=== PATIENT | male | born 1960 | race Caucasian/White ===

== ENCOUNTER → 2017-02-20 13:08 | Emergency (ER) | payer OTHER, MEDICARE ==
[2017-02-20 13:18] VITALS: BP 146/79
[2017-02-20 15:14] LABS: Hematocrit 43 % (42-52); Hemoglobin 14.7 g/dl (14.0-18.0); Mean Corpuscular HGB Conc 34 g/dl (31-36); Mean Corpuscular Hemoglobin 31 pg (27-31); Mean Corpuscular Volume 91 fL (80-94); Mean Platelet Volume 10 um3 (7.4-10.4); Red Cell Distribution Width 13 % (10.5-15)
[2017-02-20 15:34] LABS: ALT 16 U/L (7-52); AST 21 U/L (13-39); Albumin 4.1 g/dL (3.2-5.2); Alkaline Phosphatase 46 U/L (34-104); Anion Gap 7 mmol/L (2-11); BUN/Creatinine Ratio 14.7 (8-20); Blood Urea Nitrogen 15 mg/dL (6-24); CO2 Carbon Dioxide 24 mmol/L (22-32); Calcium 8.6 mg/dL (8.6-10.3); Chloride 107 mmol/L (101-111); EGFR African American 96.8 (>60); EGFR Non-African American 75.3 (>60); Globulin 2.3 g/dL (2-4); Glucose 100 mg/dL (70-100); Sodium 138 mmol/L (133-145); Total Protein 6.4 g/dL (6.4-8.9)
[2017-02-20 15:44] LABS: Acetaminophen < 15 mcg/mL; Alcohol < 10 mg/dL (<10); Salicylate < 2.50 mg/dL (<30)
[2017-02-20 15:53] LABS: TSH (Thyroid Stimulating Horm) 1.63 mcIU/mL (0.34-5.60)
[2017-02-20 16:57] LABS: Urine Bilirubin Negative (Negative); Urine Glucose Negative (Negative); Urine Nitrite Negative (Negative)
[2017-02-20 17:11] LABS: Benzodiazepine Urine Screen None Detected (None Detect)
--- NOTE | 2017-02-20 19:07 | ED ---
Juan Manuel Kruger Benjamin, scribed for Leonel Alonzo MD on 02/20/17 at 1412 . Psychiatric Complaint - HPI Summary HPI Summary: 57yo male who has hx of depression, confusion, and social withdrawal since 2005. Pt has been seeing a psychiatrist. Per , pt has been having difficulty carrying out the acts, doing normal daily chores. Pt denies any other new problems or acute changes. Denies SI or HI. Hx of bariatric surgery, hernia repair, and thyroid dz. Unknown FHx since pt was adopted. Pt is allergic to ibuprofen. Pt wants a psych consult. - History Of Current Complaint Chief Complaint: EDAltMentalStatus Time Seen by Provider: 02/20/17 13:55 Hx Obtained From: Patient, Family/Manager Hospital - Onset/Duration: Lasting Weeks, Still Present Timing: Constant Severity Initially: Mild Severity Currently: Mild Character: Depressed Aggravating Factor(s): Nothing Alleviating Factor(s): Nothing Associated Signs And Symptoms: Positive: Negative Has Suicidal: Denies: Thoughts, With A Plan Has Homicidal: Denies: Thoughts, With A Plan - Allergies/Home Medications Allergies/Adverse Reactions: Allergies Allergy/AdvReac Type Severity Reaction Status Date / Time No Known Allergies Allergy Verified 02/20/17 13:11 PMH/Surg Hx/FS Hx/Imm Hx Endocrine/Hematology History: Reports: Hx Thyroid Disease GI History: Reports: Hx Hiatal Hernia Psychiatric History: Reports: Hx Depression - Cancer History Cancer Type, Location and Year: bariatric surgery, hernia repair Infectious Disease History: Denies: Traveled Outside the [place] in Last 30 Days - Family History Known Family History: Positive: Unknown - pt is adopted - Social History Occupation: Disabled Lives: With Family Alcohol Use: None Hx Substance Use: No Substance Use Type: Reports: None Hx Tobacco Use: No Review of Systems Constitutional: Negative Eyes: Negative ENT: Negative Cardiovascular: Negative Respiratory: Negative Gastrointestinal: Negative Genitourinary: Negative Musculoskeletal: Negative Skin: Negative Neurological: Negative Positive: Depressed All Other Systems Reviewed And Are Negative: Yes Physical Exam Triage Information Reviewed: Yes Vital Signs On Initial Exam: Initial Vitals Temp Pulse Resp BP Pulse Ox 98.6 F 68 16 146/79 97 02/20/17 13:11 02/20/17 13:11 02/20/17 13:11 02/20/17 13:11 02/20/17 13:11 Vital Signs Reviewed: Yes Appearance: Positive: Well-Appearing, No Pain Distress Skin: Positive: Warm Head/Face: Positive: Normal Head/Face Inspection Eyes: Positive: EOMI ENT: Positive: Normal ENT inspection Neck: Positive: Supple Respiratory/Lung Sounds: Positive: Clear to Auscultation, Breath Sounds Present Cardiovascular: Positive: RRR. Negative: Murmur Abdomen Description: Positive: Nontender Musculoskeletal: Positive: Strength/ROM Intact Neurological: Positive: Sensory/Motor Intact, Alert, Oriented to Person Place, Time, CN Intact II-III Psychiatric: Positive: Depressed Diagnostics - Vital Signs Vital Signs Temp Pulse Resp BP Pulse Ox 02/20/17 13:11 98.6 F 68 16 146/79 97 - Laboratory Result Diagrams: 02/20/17 15:00 02/20/17 15:00 Lab Statement: Any lab studies that have been ordered have been reviewed, and results considered in the medical decision making process. Course/Dx - Course Course Of Treatment: Pt is medically cleared for mental health eval. at 15:00. The patient and did not want to wait any longer to see mental health. They got up and left without talking to me, but told the therapeutic case manager they were just leaving. they left prior to discharge. He is not suicidal or homicidal. - Differential Dx/Clinical Impression Provider Diagnosis: Depression Discharge - Discharge Plan Condition: Good Disposition: OTHER Discharge Disposition Comment: Patient walked out of ER. Eloped prior to discharge or psych consult. Referrals: Non Staff,Doctor [Primary Care Provider] - The documentation as recorded by the Juan Manuel avina Benjamin accurately reflects the service I personally performed and the decisions made by me, Leonel Alonzo MD.
== END ==
LOC: ED 13:08
DX: F32.9 Major depressive disorder, single episode, unspecified (principal)
CPT/HCPCS: 36415; 80053; 80307; 80320; 80329; 81003; 84443; 85025; 99282; G0480